=== PATIENT | male | born 1980 | race African-American/Black ===

== ENCOUNTER 2017-07-02 07:57 | Emergency (ER) | payer SELFPAY ==
[2017-07-02] MEDS ORDERED: Ondansetron ODT 4 MG TAB ONE (08:09)
[2017-07-03] MEDS ORDERED: Zolpidem Tartrate 5 MG TAB ONE (08:09)
== END 2017-07-02 08:42 | disposition home or self-care (01) ==
LOC: ERS 07:57
DX: R19.7 Diarrhea, unspecified (principal); R11.0 Nausea; F17.210 Nicotine dependence, cigarettes, uncomplicated; Z79.899 Other long term (current) drug therapy; Z86.718 Personal history of other venous thrombosis and embolism
CPT/HCPCS: 99283; Q0162

== ENCOUNTER 2017-08-29 11:22 | Emergency (ER) | payer SELFPAY | END 2017-08-29 12:38 | disposition home or self-care (01) | LOC: ERS 11:22 | DX: S93.401A Sprain of unspecified ligament of right ankle, initial encounter (principal); F17.210 Nicotine dependence, cigarettes, uncomplicated; Z79.899 Other long term (current) drug therapy; W18.40XA Slipping, tripping and stumbling without falling, unspecified, initial encounter ==

== ENCOUNTER 2017-09-21 15:41 | Emergency (ER) | payer OTHER, SELFPAY ==
--- NOTE | 2017-09-21 17:32 | RAD ---
LEFT TOE 3 VIEWS: Date: 09/21/17 HISTORY: Left fifth toe pain. FINDINGS/IMPRESSION: No fracture, dislocation, or bony destruction is seen. POS: [id number]
== END 2017-09-21 17:47 | disposition home or self-care (01) ==
LOC: ERS 15:41
DX: B35.3 Tinea pedis (principal); F17.210 Nicotine dependence, cigarettes, uncomplicated; Z71.6 Tobacco abuse counseling; Z79.899 Other long term (current) drug therapy; Z86.718 Personal history of other venous thrombosis and embolism
CPT/HCPCS: 99406

== ENCOUNTER 2018-11-16 17:24 | Emergency (ER) | payer OTHER | END 2018-11-16 21:10 | disposition left against medical advice (07) | LOC: ERS 17:24 | DX: Z53.21 Procedure and treatment not carried out due to patient leaving prior to being seen by health care provider (principal) ==